=== PATIENT | male | born 1995 | race Caucasian/White ===

== ENCOUNTER 2017-08-04 12:14 | Emergency (ER) | payer BC ==
[~2017-08-04] VITALS: Ht 182.9 cm; Wt 159.1 kg
[2017-08-04 12:21] VITALS: BP 171/97; TEMP 99.1
[2017-08-04] MEDS ORDERED: NEURONTIN300 MG/CAP PO (12:24)
[2017-08-04] MEDS ORDERED: KLONOPIN 1MG1 MG PO (12:24)
[2017-08-04] MEDS ORDERED: SEROQUEL 200MG200 MG PO (12:25)
[2017-08-04] MEDS ORDERED: CELEXA40 MG PO (12:25)
[2017-08-04] MEDS ORDERED: NORCO 325 MG-51 TAB PO (14:02)
[2017-08-04] MEDS ORDERED: CEPHALEXIN500 M1 PO (14:02)
[2017-08-04 15:06] VITALS: PULSE 95
== END 2017-08-04 15:07 | disposition home or self-care (01) ==
LOC: COL.ER 12:14
DX: S62.630A Displaced fracture of distal phalanx of right index finger, initial encounter for closed fracture (principal); S61.310A Laceration without foreign body of right index finger with damage to nail, initial encounter; Z87.891 Personal history of nicotine dependence; Z23 Encounter for immunization; W23.0XXA Caught, crushed, jammed, or pinched between moving objects, initial encounter